=== PATIENT | male | born 1975 | race Hispanic/Latino ===

== ENCOUNTER 2016-12-26 14:39 | Inpatient (IN) | payer MEDICAID ==
[2016-12-26 15:12] VITALS: O2SAT 100
--- NOTE | 2016-12-26 15:57 | ED PDOC ---
Arrival/HPI - General Chief Complaint: Psychiatric Evaluation Time Seen by Provider: 12/26/16 15:44 Historian: Patient - History of Present Illness Narrative History of Present Illness (Text): 12/26/16 16:08 A 41 year old male, whose past medical history includes bipolar, PTSD and HPPD, presents to the emergency department because states he has been homeless for the last 3 months and off his medications. Patient notes has been anxious and has racing thoughts to hurt himself and plans to cut his arm. Patient denies homicidal ideation or hallucinations. Patient reports no acute complaints. Patient also reports chronic headaches and back pain. Symptom Onset: Sudden Symptom Course: Unchanged Activities at Onset: Rest Modifying Factors (Text): none Associated Symptoms (Text): anxious, suicidal ideation; chronic back pain and headaches Past Medical History - Provider Review Nursing Documentation Reviewed: Yes - Cardiac Hx Cardiac Disorders: No - Pulmonary Hx Respiratory Disorders: No - Neurological Hx Neurological Disorder: No - HEENT Hx HEENT Disorder: No - Renal Hx Renal Disorder: No - Endocrine/Metabolic Hx Endocrine Disorders: No - Hematological/Oncological Hx Blood Disorders: No - Integumentary Hx Dermatological Disorder: No - Musculoskeletal/Rheumatological Hx Back Pain: Yes - Gastrointestinal Hx Gastrointestinal Disorders: No - Genitourinary/Gynecological Hx Genitourinary Disorders: No - Psychiatric Hx Anxiety: Yes Hx Bipolar Disorder: Yes Hx Depression: Yes Hx Substance Use: Yes (CRACK COCAINE, HEROIN, PCP, LSD) Other/Comment: PTSD, HPPD Family/Social History - Physician Review Nursing Documentation Reviewed: Yes Family/Social History: No Known Family HX Smoking Status: Never Smoked Hx Alcohol Use: Yes Hx Substance Use: Yes (CRACK COCAINE, HEROIN, PCP, LSD) Allergies/Home Meds Allergies/Adverse Reactions: Allergies Penicillins Allergy (Verified 12/26/16 15:04) ANAPHYLAXIS Home Medications: Home Meds Medication Instructions Recorded Confirmed Acetaminophen/Butalbital/Caf 1 tab PO Q4 12/26/16 12/26/16 [Fioricet] Loratadine/Pseudoephedrine 1 tab PO DAILY 12/26/16 12/26/16 [Claritin-D 24 Hour Tablet] Valproic Acid [Depakene] 500 mg PO BID 12/26/16 12/26/16 Review of Systems - Physician Review All systems were reviewed & negative as marked: Yes - Review of Systems Constitutional: absent: Fevers Eyes: absent: Vision Changes Respiratory: absent: SOB Cardiovascular: absent: Chest Pain Musculoskeletal: Back Pain Neurological: Headache Psychiatric: Suicidal Ideation. absent: Other (homicidal ideation, hallucinations) Physical Exam Vital Signs Reviewed: Yes Vital Signs Temp Pulse Resp BP Pulse Ox 12/26/16 17:08 64 17 143/100 H 100 12/26/16 15:05 98.8 F 87 18 153/110 H 100 Temperature: Afebrile Blood Pressure: Hypertensive Pulse: Regular Respiratory Rate: Normal Appearance: Positive for: Well-Appearing, Non-Toxic, Comfortable Pain Distress: None Mental Status: Positive for: Alert and Oriented X 3 - Systems Exam Head: Present: Atraumatic, Normocephalic Pupils: Present: PERRL Conjunctiva: Present: Normal Mouth: Present: Moist Mucous Membranes Pharnyx: Present: Normal. No: ERYTHEMA, EXUDATE Neck: Present: Normal Range of Motion Respiratory/Chest: Present: Clear to Auscultation, Good Air Exchange. No: Respiratory Distress, Accessory Muscle Use Cardiovascular: Present: Regular Rate and Rhythm, Normal S1, S2. No: Murmurs Abdomen: Present: Normal Bowel Sounds. No: Tenderness, Distention, Peritoneal Signs Back: Present: Normal Inspection Upper Extremity: Present: Normal Inspection. No: Cyanosis, Edema Lower Extremity: Present: Normal Inspection. No: Edema Neurological: Present: GCS=15, CN II-XII Intact, Speech Normal Skin: Present: Warm, Dry, Normal Color. No: Rashes Psychiatric: Present: Alert, Oriented x 3, Normal Insight, Normal Concentration , Suicidal Ideation, Other (pressured speech) Medical Decision Making ED Course and Treatment: 12/26/16 15:55 Impression: A 41 year old male with suicidal ideation. Plan: -- EKG -- chest xray -- Urinalysis -- labs -- Reassess and disposition Progress Notes: EKG: Ordered, reviewed, and independently interpreted the EKG. Rate : 72 BPM Rhythm : NSR Interpretation : QRS 100, normal axis, no ST/T changes Comparison : No previous EKG for comparison. 12/26/16 17:53 Patient with noted history is medically cleared for psych admission. Seen by PES - will be admitted for depresion. - Lab Interpretations Lab Results: 12/26/16 16:20 05/14/17 16:20 Lab Results 12/26/16 16:30: Urine Opiates Screen Negative, Urine Methadone Screen Negative, Ur Barbiturates Screen Positive H, Ur Phencyclidine Scrn Negative, Ur Amphetamines Screen Negative, U Benzodiazepines Scrn Negative, U Oth Cocaine Metabols Positive H, U Cannabinoids Screen Negative 12/26/16 16:30: Urine Color Yellow, Urine Appearance Clear, Urine pH 7.5, Ur Specific [place] 1.010, Urine Protein Negative, Urine Glucose (UA) Negative, Urine Ketones Negative, Urine Blood Negative, Urine Nitrate Negative, Urine Bilirubin Negative, Urine Urobilinogen 0.2, Ur Leukocyte Esterase Negative 12/26/16 16:20: Valproic Acid 41 L 12/26/16 16:20: Alcohol, Quantitative < 10 12/26/16 16:20: Sodium 140, Potassium 4.3, Chloride 101, Carbon Dioxide 30, Anion Gap 13, BUN 15, Creatinine 1.0, Est GFR ( Amer) > 60, Est GFR (Non- Af Amer) > 60, Random Glucose 95, Calcium 9.7, Total Bilirubin 0.5, AST 22, ALT 36, Alkaline Phosphatase 60, Total Creatine Kinase 62, Total Protein 7.7, Albumin 4.3, Globulin 3.3, Albumin/Globulin Ratio 1.3, Lipase 54 12/26/16 16:20: WBC 6.8, RBC 4.48, Hgb 14.5, Hct 42.0, MCV 93.8, MCH 32.4, MCHC 34.5, RDW 12.7, Plt Count 422, MPV 8.5, Gran % 65.0, Lymph % (Auto) 27.6, Moca % (Auto) 6.2 H, Eos % (Auto) 0.9 L, Baso % (Auto) 0.3, Gran # 4.43, Lymph # 1.9 , Moca # 0.4, Eos # 0.1, Baso # 0.02 12/26/16 15:56: POC Glucose (mg/dL) 89 I have reviewed the lab results: Yes - RAD Interpretation Radiology Orders: 12/26/16 15:51 CHEST PORTABLE [RAD] Stat - EKG Interpretation Interpreted by ED Physician: Yes Type: 12 lead EKG - Scribe Statement The provider has reviewed the documentation as recorded by the Trino Ziegler Provider Scribe Attestation: All medical record entries made by the Scribe were at my direction and personally dictated by me. I have reviewed the chart and agree that the record accurately reflects my personal performance of the history, physical exam, medical decision making, and the department course for this patient. I have also personally directed, reviewed, and agree with the discharge instructions and disposition. Disposition/Present on Arrival - Present on Arrival Any Indicators Present on Arrival: No History of DVT/PE: No History of Uncontrolled Diabetes: No Urinary Catheter: No History of Decub. Ulcer: No History Surgical Site Infection Following: None - Disposition Have Diagnosis and Disposition been Completed?: Yes Diagnosis: Depression Disposition: HOSPITALIZED Disposition Time: 17:45 Patient Plan: Admission Condition: FAIR Referrals: PCP,NO [Primary Care Provider] - Follow up with primary
[2016-12-26 16:31] LABS: ADD MANUAL DIFF? NO
[2016-12-26 16:36] LABS: BASO # 0.02 K/mm3 (0.0-2.0); BASO % 0.3 % (0.0-3.0); EOS # 0.1 (0.0-0.7); EOS % 0.9 % (1.5-5.0); GRAN # 4.43 (1.4-6.5); LYMPH # 1.9 (1.2-3.4); LYMPH % 27.6 % (22.0-35.0); MEAN CELL VOLUME 93.8 fL (80.0-105.0); MEAN CORPUSCULAR HEMOGLOBIN 32.4 pg (25.0-35.0); MEAN CORPUSCULAR HGB CONC 34.5 g/dl (31.0-37.0); MEAN PLATELET VOLUME 8.5 fl (7.0-11.0); MONO # 0.4 (0.1-0.6); MONO % 6.2 % (1.0-6.0); PLATELET COUNT 422 10^3/uL (120.0-450.0); RED CELL DISTRIBUTION WIDTH 12.7 % (11.5-14.5); WHITE BLOOD COUNT 6.8 10^3/ul (4.5-11.0)
[2016-12-26 16:45] LABS: PH,URINE 7.5 (4.7-8.0); URINE APPEARANCE CLEAR (CLEAR); URINE BILIRUBIN NEGATIVE (NEGATIVE); URINE BLOOD NEGATIVE (NEGATIVE); URINE COLOR YELLOW (YELLOW); URINE GLUCOSE (UA) NEGATIVE (NEGATIVE); URINE KETONE NEGATIVE (NEGATIVE); URINE LEUKOCYTE ESTERASE NEGATIVE Leu/uL (NEGATIVE); URINE PROTEIN NEGATIVE mg/dL (<30 mg/dL); URINE UROBILINOGEN 0.2 E.U./dL (<1 E.U./dL)
[2016-12-26 16:55] LABS: ALB/GLOB RATIO 1.3 (1.1-1.8); ALKALINE PHOSPHATASE 60 U/L (38-133); ALT/SGPT 36 U/L (7-56); AST/SGOT 22 U/L (15-59); BILIRUBIN,TOTAL 0.5 mg/dL (0.2-1.3); BLOOD UREA NITROGEN 15 mg/dL (7-21); CALCIUM 9.7 mg/dL (8.4-10.5); CARBON DIOXIDE 30 mmol/L (21-33); CHLORIDE 101 mmol/L (98-107); GFR AFRICAN-AMERICAN > 60; GLUCOSE,RANDOM 95 mg/dL (70-110); LIPASE 54 U/L (23-300); POTASSIUM 4.3 mmol/L (3.6-5.0); SODIUM 140 mmol/L (132-148); TOTAL PROTEIN 7.7 g/dL (5.8-8.3)
[2016-12-27 06:59] VITALS: RESP 20; TEMP 98.1
--- NOTE | 2016-12-27 07:12 | RAD ---
HISTORY: psych COMPARISON: None available. TECHNIQUE: Chest, one view. FINDINGS: LUNGS: No focal consolidation. Please note that chest x-ray has limited sensitivity for the detection of pulmonary masses. PLEURA: No significant pleural effusion identified. No definite pneumothorax . CARDIOVASCULAR: The cardiomediastinal silhouette appears within normal limits of size. OSSEOUS STRUCTURES: No acute osseous abnormality identified. VISUALIZED UPPER ABDOMEN: Unremarkable. OTHER FINDINGS: None. IMPRESSION: No focal consolidation, significant pleural effusion, or definite pneumothorax identified.
[2016-12-27 07:59] LABS: CHOLESTEROL 168 mg/dL (130-200); GLUCOSE,FASTING 90 mg/dL (65-110)
[2016-12-27] MEDS: Divalproex 500 mg DR(BID formulation) PO SCH ×2 (09:15→17:00)
[2016-12-27] MEDS ORDERED: Lidocaine 5% Patch TD SCH (11:15)
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
--- NOTE | 2016-12-27 11:54 | CARD ---
APPROVED REPORT EKG Measurement Heart [id number] <Conclusion> Normal sinus rhythm Incomplete right bundle branch block Normal ECG
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
[2016-12-27 15:57] VITALS: BP 124/88; PULSE 84
--- NOTE | 2016-12-27 17:49 | CON ---
DATE: 12/27/2016 CHIEF COMPLAINT: Headaches, history of concussions. HISTORY OF PRESENT ILLNESS: This is a 41-year-old man with past medical history of bipolar disorder, PTSD, hallucinogen persisting perception disorder, chronic headaches, anxiety, depression, who is he re in the psychiatric unit for evaluation of suicidal ideation. He was having some visual hallucinat ions and I was consulted for his history of chronic headaches. He has history of multiple concussion s throughout his life in the past. He gets headaches daily. He takes Fioricet 4 times a day, which has been explained to him that it can lead to overuse medication headache. He has tried gabapentin o nce before, which had some relief. He has chronic low back pain for multiple years due to history of trauma. He denies any change in sense of vision, taste or smell with his headaches. He gets occasi onal aura. Otherwise, no paresthesias in the extremities with the headaches. He was on Depakote for his bipolar, but he wants to be tapered off since it is not working for that or his headaches. Curr ently, he is walking around without any difficulties. PAST MEDICAL HISTORY: Bipolar disorder, PTSD, hallucinogen persisting perception disorder, chronic h eadaches, anxiety, depression. PAST SURGICAL HISTORY: None. ALLERGIES: None. FAMILY HISTORY: Noncontributory. SOCIAL HISTORY: He has lost his job 4 months ago. Homeless for the past 3 months. He denies any ETO H abuse or smoking. His last cocaine use was 4 days ago. Prior to that, 9 months. Last ETOH use was 4 days ago. REVIEW OF SYSTEMS: A 14-point review of systems except for the HPI. PHYSICAL EXAMINATION: VITAL SIGNS: Temperature 98.1, pulse of 80, blood pressure 130/88, respiratory rate 20, oxygen satur ation 100% on room air. GENERAL: The patient is sitting up in bed in no acute distress. HEENT: Atraumatic, normocephalic. PERRLA. Extraocular muscles intact. NECK: Supple, no JVD, no adenopathy noted. LUNGS: Clear to auscultation. No adventitious sounds. HEART: S1, S2, normal rate and rhythm. No murmurs, rubs, or gallops. ABDOMEN: Soft, nontender, nondistended. Bowel sounds present. EXTREMITIES: No clubbing, no cyanosis. Peripheral pulses 2+ felt bilaterally. NEUROLOGIC: The patient is alert, oriented to person, place, month and year. Speech is fluent, with out any errors. Cranial nerves II through XII are intact. MOTOR: Moves all extremities equally. Toes downgoing bilaterally. SENSORY: Light touch, pinprick, proprioception, vibration intact. DTRs are 2+ throughout. COORDINATION: [id number]-defo intact. GAIT: Normal. LABORATORIES: Sodium is 140, potassium 4.3, chloride of 101, carbon dioxide 30, BUN of 15, creatinin e at 1. Random glucose of 95. ASSESSMENT AND PLAN: This is a 41-year-old man with history of chronic back pain, depression, anxiet y, post traumatic stress disorder, bipolar disorder, chronic headaches, history of multiple concussio ns. Came in for suicidal ideation, was called for a neurological evaluation for his headaches. He i s overusing Fioricet, taking 4 a day, which can cause medication overuse headache. Also, his headach es with a migraine component. I feel like he will benefit from gabapentin or Neurontin 400 mg p.o. b.i.d., which will also help with his anxiety as well as headache prevention, and to limit the u se of Fioricet, not more than 1 or 2 q. 6 hours. At this time, continue with psychiatric management for his underlying bipolar disorder and can follow up as an outpatient. Thank you for this consult. Konrad Chacon MD cc: [id number] TT: 12/27/2016 17:48:55 Confirmation # [id number] Dictation # [id number] ln
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
== END 2016-12-27 20:05 | DRG 430 ==
LOC: ED 14:39 → ERH 17:55 → MERGE 17:55 → PSYC 18:54
PROVIDERS: ADMIT Psychologist; ATTEND Psychiatry & Neurology Psychiatry
PROC: GZ3ZZZZ Medication Management (ICD-10-PCS; principal; 2016-12-26)
DX: F32.89 Other specified depressive episodes (principal); R45.851 Suicidal ideations; F14.10 Cocaine abuse, uncomplicated; F43.23 Adjustment disorder with mixed anxiety and depressed mood; G43.909 Migraine, unspecified, not intractable, without status migrainosus; F43.10 Post-traumatic stress disorder, unspecified; M54.5 Low back pain; G89.29 Other chronic pain; F41.9 Anxiety disorder, unspecified; F16.983 Hallucinogen use, unspecified with hallucinogen persisting perception disorder (flashbacks); F17.210 Nicotine dependence, cigarettes, uncomplicated; Z59.0 Homelessness

== ENCOUNTER 2017-03-24 13:13 | Inpatient (IN) | payer MEDICAID ==
[2017-03-24 13:15] VITALS: BMI 23.6
--- NOTE | 2017-03-24 13:50 | ED PDOC ---
Arrival/HPI - General Chief Complaint: Psychiatric Evaluation Time Seen by Provider: 03/24/17 13:17 Historian: Patient - History of Present Illness Narrative History of Present Illness (Text): 03/24/17 13:28 A 41 year old male whose past medical history includes, PTSD and ADD, presents to the emergency department for depression and suicidal ideation. The patient states that he wants to jump in front of a train and admits to using cocaine. The patient denies homicidal ideation, hallucinations, headache, chills, fevers , abdominal pain, nausea, vomiting, diarrhea, or any other complaints. Time/Duration: Other (today) Symptom Onset: Sudden Symptom Course: Unchanged Activities at Onset: Rest, Light Context: Home Past Medical History - Provider Review Nursing Documentation Reviewed: Yes - Infectious Disease Hx of Infectious Diseases: None - Cardiac Hx Cardiac Disorders: No - Pulmonary Hx Respiratory Disorders: No - Neurological Hx Neurological Disorder: No Other/Comment: Concussions in the past - HEENT Hx HEENT Disorder: No - Renal Hx Renal Disorder: No - Endocrine/Metabolic Hx Endocrine Disorders: No - Hematological/Oncological Hx Blood Disorders: No - Integumentary Hx Dermatological Disorder: No - Musculoskeletal/Rheumatological Hx Musculoskeletal Disorders: Yes Hx Back Pain: Yes - Gastrointestinal Hx Gastrointestinal Disorders: No - Genitourinary/Gynecological Hx Genitourinary Disorders: No - Psychiatric Hx Psychophysiologic Disorder: Yes Hx Anxiety: Yes Hx Bipolar Disorder: Yes Hx Depression: Yes Hx Post Traumatic Stress Disorder: Yes Hx Substance Use: Yes (cocaine, heroin) - Anesthesia Hx Anesthesia: No - Suicidal Assessment Feels Threatened In Home Enviroment: No Family/Social History - Physician Review Nursing Documentation Reviewed: Yes Family/Social History: No Known Family HX Smoking Status: Never Smoked Hx Alcohol Use: Yes Frequency of alcohol use: Few days per week Hx Substance Use: Yes (cocaine, heroin) Substance used: cocaine Allergies/Home Meds Allergies/Adverse Reactions: Allergies Penicillins Allergy (Verified 01/31/17 11:19) trazodone Adverse Reaction (Intermediate, Verified 01/31/17 11:19) VOMITING canned fish Allergy (Intermediate, Uncoded 01/31/17 11:19) VOMITING Home Medications: Home Meds Medication Instructions Recorded Confirmed Paroxetine HCl [Paxil] 20 mg PO DAILY 01/17/17 03/24/17 Acetaminophen/Butalbital/Caf 1 tab PO QID 03/24/17 03/24/17 [Fioricet] Cyclobenzaprine [Cyclobenzaprine 10 mg PO BID 03/24/17 03/24/17 HCl] traMADol [Ultram] 50 mg PO TID 03/24/17 03/24/17 Review of Systems - Physician Review All systems were reviewed & negative as marked: Yes - Review of Systems Constitutional: absent: Fevers, Night Sweats Respiratory: absent: SOB Cardiovascular: absent: Chest Pain, Syncope Gastrointestinal: absent: Diarrhea, Nausea, Vomiting Neurological: absent: Headache, Dizziness Psychiatric: Suicidal Ideation. absent: Other (Homicidal Ideation and Hallucinations) Physical Exam Vital Signs Reviewed: Yes Vital Signs Temp Pulse Resp BP Pulse Ox 03/24/17 13:22 99.7 F H 97 H 20 157/112 H 96 Temperature: Febrile Blood Pressure: Hypertensive Pulse: Tachycardic Respiratory Rate: Normal Appearance: Positive for: Well-Appearing, Non-Toxic, Comfortable Pain Distress: None Mental Status: Positive for: Alert and Oriented X 3 - Systems Exam Head: Present: Atraumatic, Normocephalic Pupils: Present: PERRL Extroacular Muscles: Present: EOMI Conjunctiva: Present: Normal Mouth: Present: Moist Mucous Membranes Neck: Present: Normal Range of Motion Respiratory/Chest: Present: Clear to Auscultation, Good Air Exchange. No: Respiratory Distress, Accessory Muscle Use Cardiovascular: Present: Regular Rate and Rhythm, Normal S1, S2. No: Murmurs Abdomen: Present: Normal Bowel Sounds. No: Tenderness, Distention, Peritoneal Signs Back: Present: Normal Inspection Upper Extremity: Present: Normal Inspection. No: Cyanosis, Edema Lower Extremity: Present: Normal Inspection. No: Edema Neurological: Present: GCS=15, CN II-XII Intact, Speech Normal Skin: Present: Warm, Dry, Normal Color. No: Rashes Psychiatric: Present: Alert, Oriented x 3, Normal Insight, Normal Concentration , Depressed Mood, Suicidal Ideation. No: Homicidal Ideation Medical Decision Making ED Course and Treatment: 03/24/17 13:56 Impression: A 41 year old male presents with suicidal ideation and depression. Differential Diagnosis included but are not limited to: Plan: -- EKG -- Labs -- Chest X-ray -- Urinalysis -- Reassess and disposition Progress Notes: 03/24/17 14:23 EKG: Ordered, reviewed, and independently interpreted the EKG. Rate : 85 BPM Rhythm : NSR Interpretation : No ST/T wave changes. 03/24/17 14:54: Patient medically clear. - Lab Interpretations Lab Results: 03/24/17 14:17 03/24/17 14:17 Lab Results 03/24/17 14:17: Alcohol, Quantitative < 10 03/24/17 14:17: Salicylates < 1 L, Acetaminophen < 10.0 L 03/24/17 14:17: Urine Opiates Screen Negative, Urine Methadone Screen Negative, Ur Barbiturates Screen Positive H, Ur Phencyclidine Scrn Negative, Ur Amphetamines Screen Negative, U Benzodiazepines Scrn Negative, U Oth Cocaine Metabols Positive H, U Cannabinoids Screen Negative 03/24/17 14:17: Sodium 139, Potassium 3.7, Chloride 102, Carbon Dioxide 27, Anion Gap 14, BUN 14, Creatinine 1.0, Est GFR ( Amer) > 60, Est GFR (Non- Af Amer) > 60, Random Glucose 88, Calcium 9.4, Total Bilirubin 0.4, AST 36, ALT 51, Alkaline Phosphatase 67, Total Protein 7.2, Albumin 4.5, Globulin 2.7, Albumin/Globulin Ratio 1.7 03/24/17 14:17: Urine Color Yellow, Urine Appearance Clear, Urine pH 6.5, Ur Specific Sawyer 1.020, Urine Protein Negative, Urine Glucose (UA) Negative, Urine Ketones Negative, Urine Blood Negative, Urine Nitrate Negative, Urine Bilirubin Negative, Urine Urobilinogen 0.2, Ur Leukocyte Esterase Negative 03/24/17 14:17: WBC 5.6, RBC 4.13, Hgb 13.3 L, Hct 38.3 L, MCV 92.7, MCH 32.2, MCHC 34.7, RDW 12.4, Plt Count 403, MPV 8.2, Gran % 60.2, Lymph % (Auto) 30.1, Pierce % (Auto) 8.9 H, Eos % (Auto) 0.4 L, Baso % (Auto) 0.4, Gran # 3.39, Lymph # 1.7, Pierce # 0.5, Eos # 0.0, Baso # 0.02 - RAD Interpretation Radiology Orders: 03/24/17 13:48 CHEST PORTABLE [RAD] Stat - Scribe Statement The provider has reviewed the documentation as recorded by the Scribe Marisa Nicolas Provider Scribe Attestation: All medical record entries made by the Scribe were at my direction and personally dictated by me. I have reviewed the chart and agree that the record accurately reflects my personal performance of the history, physical exam, medical decision making, and the department course for this patient. I have also personally directed, reviewed, and agree with the discharge instructions and disposition. Disposition/Present on Arrival - Present on Arrival Any Indicators Present on Arrival: No History of DVT/PE: No History of Uncontrolled Diabetes: No Urinary Catheter: No History of Decub. Ulcer: No History Surgical Site Infection Following: None - Disposition Have Diagnosis and Disposition been Completed?: Yes Diagnosis: Bipolar 1 disorder, Substance abuse Disposition: HOSPITALIZED Disposition Time: 02:00 Condition: STABLE
[2017-03-24 14:31] LABS: PH,URINE 6.5 (4.7-8.0); URINE BILIRUBIN NEGATIVE (NEGATIVE); URINE BLOOD NEGATIVE (NEGATIVE); URINE GLUCOSE (UA) NEGATIVE (NEGATIVE); URINE LEUKOCYTE ESTERASE NEGATIVE Leu/uL (NEGATIVE); URINE NITRATE NEGATIVE (NEGATIVE); URINE PROTEIN NEGATIVE mg/dL (<30 mg/dL); URINE UROBILINOGEN 0.2 E.U./dL (<1 E.U./dL)
[2017-03-24 14:32] LABS: URINE APPEARANCE CLEAR (CLEAR); URINE COLOR YELLOW (YELLOW)
[2017-03-24 14:33] LABS: BASO # 0.02 K/mm3 (0.0-2.0); BASO % 0.4 % (0.0-3.0); EOS % 0.4 % (1.5-5.0); GRAN # 3.39 (1.4-6.5); GRAN % 60.2 % (50.0-68.0); HEMOGLOBIN 13.3 g/dL (14.0-18.0); LYMPH # 1.7 (1.2-3.4); LYMPH % 30.1 % (22.0-35.0); MEAN CELL VOLUME 92.7 fl (80.0-105.0); MEAN CORPUSCULAR HEMOGLOBIN 32.2 pg (25.0-35.0); MEAN CORPUSCULAR HGB CONC 34.7 g/dl (31.0-37.0); MEAN PLATELET VOLUME 8.2 fl (7.0-11.0); MONO # 0.5 (0.1-0.6); MONO % 8.9 % (1.0-6.0); PLATELET COUNT 403 10^3/uL (120.0-450.0); RBC 4.13 10^6/uL (3.5-6.1); RED CELL DISTRIBUTION WIDTH 12.4 % (11.5-14.5); WHITE BLOOD COUNT 5.6 10^3/ul (4.5-11.0)
--- NOTE | 2017-03-24 14:39 | RAD ---
HISTORY: pysch COMPARISON: 12/26/2016 FINDINGS: LUNGS: No active pulmonary disease. PLEURA: No significant pleural effusion identified, no pneumothorax apparent. CARDIOVASCULAR: Normal. OSSEOUS STRUCTURES: No significant abnormalities. VISUALIZED UPPER ABDOMEN: Normal. OTHER FINDINGS: None. IMPRESSION: No active disease.
[2017-03-24 14:41] LABS: SALICYLATE < 1 mg/dL (2.0-20.0)
[2017-03-24 14:42] LABS: ALB/GLOB RATIO 1.7 (1.1-1.8); ALBUMIN 4.5 g/dL (3.0-4.8); ALT/SGPT 51 U/L (7-56); AST/SGOT 36 U/L (15-59); BLOOD UREA NITROGEN 14 mg/dL (7-21); CALCIUM 9.4 mg/dL (8.4-10.5); GFR AFRICAN-AMERICAN > 60; GFR NON-AFRICAN AMERICAN > 60
[2017-03-24 14:51] LABS: ACETAMINOPHEN < 10.0 ug/ml (10.0-20.0); BARBITURATES, UR POSITIVE (NEGATIVE); BENZODIAZEPINES, UR NEGATIVE (NEGATIVE); OPIATES, UR NEGATIVE (NEGATIVE); PHENCYCLIDINE, UR NEGATIVE (NEGATIVE)
[2017-03-24 18:28] VITALS: O2SAT 100
[2017-03-24] MEDS ORDERED: Magnesium Hydroxide Susp 30 ml UD PO PRN (20:35)
[2017-03-24] MEDS ORDERED: Alum-Mag Hydrox-Simethicone Susp (30 mL) PO PRN (20:35)
[2017-03-24 21:57] VITALS: RESP 20
--- NOTE | 2017-03-24 23:45 | PCM.BM ---
<Zander Neri - Last Filed: 03/24/17 23:43> Treatment Plan Problems - Problems identified on initial assessmt suicidal ideation Date Initiated: 03/24/17 Time Initiated: 20:00 Assessment reference: NA Status: Active depression Date Initiated: 03/24/17 Time Initiated: 20:00 Assessment reference: NA Status: Active Treatment assets and liabiliti Patient Assests: ADL independent, negotiates basic needs, cognitively intact Patient Liabilities: live alone, poor support system, relationship conflicts, substance abuse - Milieu Protocol Maintain good personal hygiene: daily Encourage regular showers, daily Remind patient to perform daily oral care Conduct patient checks and document Observation sheet: Q15 minutes Maintain personal safety: every shift Educate patient to report safety concerns to staff, every shift Monitor environment for contraband/sharps Medication safety: Monitor for expected outcome, potential side effects: every shift, Assess barriers to learning: every shift, Assess readiness for medication education: every shift Discharge/Continuing Care - Education Needs Education Needs: Patient Medication, Patient Diagnosis/Disease Process, Patient Coping Skills - Discharge Discharge Criteria: Free of Suicidal thoughts <David Nick - Last Filed: 03/25/17 12:05> - Milieu Protocol Maintain good personal hygiene: daily Encourage regular showers, daily Remind patient to perform daily oral care, daily Assist patient to perform ADL's Maintain personal safety: daily Educate patient to report safety concerns to staff, daily Monitor environment for contraband/sharps Medication safety: Monitor for expected outcome, potential side effects: daily, Assess barriers to learning: daily, Assess readiness for medication education: daily <Yesica Brown - Last Filed: 03/25/17 15:45> Family Contact Family involvement: Famliy/SO not involved <Afshan Victor - Last Filed: 03/25/17 16:35> - Diagnosis (1) Bipolar 1 disorder Status: Acute Interventions: 03/25/17 16:37 Psychoeducation Psychopharmacology/adjustment of medications as needed/ monitoring possible side effects Monitor blood level of mood stabilizers Evaluate pt on daily basis Compliance with medications and follow up appointments Suicide and homicide risk assessment and prevention, coping strategies, safety plan Relapse prevention Reduction of symptoms Improve functional status Family intervention As outpatient: cognitive behavioral therapy (2) Polysubstance abuse Status: Acute Interventions: 03/25/17 16:37 Monitoring withdrawal symptoms Medical detoxification Pharmacotherapy for alcohol/benzos/opioid dependence Maintaining sobriety Relapse prevention Possible rehabilitation Motivational interviewing 12-step programs: AA meetings (3) Antisocial personality disorder Status: Acute Interventions: 03/25/17 16:37 Psychoeducation Psychopharmacology/adjustment of medications as needed/ monitoring possible side effects Evaluate pt on daily basis Compliance with medications and follow up appointments Suicide and homicide risk assessment and prevention, coping strategies, safety plan Relapse prevention Family intervention As outpatient: Transference-focused psychotherapy/dialectical behavioral therapy /schema therapy Mindfulness skills <Jan Burger - Last Filed: 03/28/17 16:52> Treatment assets and liabiliti Patient Assests: cooperative, ADL independent, physically healthy, good support system, negotiates basic needs, cognitively intact Patient Liabilities: substance abuse - Milieu Protocol Maintain good personal hygiene: daily Encourage regular showers, daily Remind patient to perform daily oral care, daily Assist patient to perform ADL's Conduct patient checks and document Observation sheet: Q15 minutes Maintain personal safety: every shift Educate patient to report safety concerns to staff, every shift Monitor environment for contraband/sharps Medication safety: Monitor for expected outcome, potential side effects: every shift, Assess barriers to learning: every shift, Assess readiness for medication education: every shift Discharge/Continuing Care - Education Needs Education Needs: Patient Medication, Patient Diagnosis/Disease Process, Patient Coping Skills
--- NOTE | 2017-03-25 00:13 | CARD ---
APPROVED REPORT EKG Measurement Heart [id number] <Conclusion> Normal sinus rhythm Normal ECG
[2017-03-25 07:15] LABS: GLUCOSE,FASTING 82 mg/dL (65-110); HDL CHOLESTEROL 85 mg/dL (29-60); LDL CHOLESTEROL 60 mg/dL (0-129)
[2017-03-25] MEDS: Bacitracin Ointment 30 GM TUBE TOP SCH ×5 (09:25→17:45)
[2017-03-25] MEDS: Divalproex 500 mg DR(BID formulation) PO SCH ×2 (09:28→17:45)
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
[2017-03-25] MEDS ORDERED: Apap-Butalbital-Caffeine 325-50-40mg Tab PO PRN (16:07)
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
[2017-03-25 16:24] LABS: ALB/GLOB RATIO 1.8 (1.1-1.8); ALBUMIN 4.2 g/dL (3.0-4.8); ALT/SGPT 52 U/L (7-56); AST/SGOT 40 U/L (15-59); BLOOD UREA NITROGEN 17 mg/dL (7-21); CALCIUM 9.6 mg/dL (8.4-10.5); GFR AFRICAN-AMERICAN > 60; GFR NON-AFRICAN AMERICAN > 60
[2017-03-25 16:28] LABS: BASO # 0.02 K/mm3 (0.0-2.0); BASO % 0.3 % (0.0-3.0); EOS # 0.1 (0.0-0.7); EOS % 1.3 % (1.5-5.0); GRAN % 60.4 % (50.0-68.0); HEMOGLOBIN 14.6 g/dL (14.0-18.0); LYMPH % 28.7 % (22.0-35.0); MEAN CELL VOLUME 96.2 fl (80.0-105.0); MEAN CORPUSCULAR HEMOGLOBIN 32.7 pg (25.0-35.0); MEAN PLATELET VOLUME 8.6 fl (7.0-11.0); MONO # 0.7 (0.1-0.6); MONO % 9.3 % (1.0-6.0); PLATELET COUNT 411 10^3/uL (120.0-450.0); RBC 4.46 10^6/uL (3.5-6.1); RED CELL DISTRIBUTION WIDTH 12.9 % (11.5-14.5)
[2017-03-26] MEDS: Bacitracin Ointment 30 GM TUBE TOP SCH ×13 (01:16→22:49)
--- NOTE | 2017-03-26 08:39 | PCM.PYCHPN ---
Psychiatric Progress Note - Psychiatric Progress Note Patient seen today, length of contact: 25 min Patient Chief Complaint: "a little better" Problems Identified/Issues Discussed: I reviewed assessment and recent notes. Patient was interviewed at bedside. He is in fair control and well oriented to circumstances. Thought process is coherent. Patient reports that he feels a little better since admission. Still tired and sleep is "on and off" Affect is constricted and patient denies SI or AVH. Presently denies any new discomfort or pain. Tolerating medications. Staff notes indicate patient can be demanding and manipulative at times. He requires limit setting. There were no major behavioral problems overnight. Diagnostic Results: r/o MDD r/o KALPANA r/o PTSD r/o ADD h/o LSD addiction cocaine abuse h/o alcohol use disorder as per collateral information from [facility] pt has strong antisocial traits Medication Change: No Medical Record Reviewed: Yes Mental Status Examination - Cognitive Function Orientation: Person, Place Attention: WNL - Mood Mood: Depressed ("a little better"), Anxious - Affect Affect: Flat - Speech Speech: Appropriate - Formal Thought Process Formal Thought Process: No Impairment - Suicidal Ideation Suicidal Ideation: No - Homicidal Ideation Homicidal Ideation: No Goal/Treatment Plan - Goal/Treatment Plan Progress Toward Problem(s) and Goals/Treatment Plan: * c/w current tx and plan * Awaiting VPA level * Vitals reviewed and noted below: Selected Entries 03/25/17 03/25/17 07:43 16:00 Temperature 98.0 F Pulse Rate 60 90 Respiratory 20 Rate Blood Pressure 144/98 H 127/90
[2017-03-26] MEDS: Divalproex 500 mg DR(BID formulation) PO SCH ×2 (08:52→18:08)
[2017-03-26] MEDS: Multivitamin Therapeutic Tab PO SCH (08:52)
[2017-03-27] MEDS: Divalproex 500 mg DR(BID formulation) PO SCH ×2 (08:33→18:12)
--- NOTE | 2017-03-27 09:20 | PCM.PYCHPN ---
Psychiatric Progress Note - Psychiatric Progress Note Patient seen today, length of contact: 25 min Patient Chief Complaint: "absolutely feel better"" Problems Identified/Issues Discussed: I reviewed recent notes and patient was interviewed at bedside. He is in fair control and well oriented to circumstances. Thought process is coherent. Patient reports that he "absolutely feels better" since admission. Manager Cosmetics heavy tongue yesterday, possibly secondary to Risperdal. This improved with cogentin and patient denies recurrence. Affect is less constricted today and patient denies SI or AVH. Presently denies any other new discomfort or pain. Tolerating other medications. Staff notes indicate patient has generally been more manageable and has been attending groups. There were no major behavioral problems over the weekend. Diagnostic Results: r/o MDD r/o KALPANA r/o PTSD r/o ADD h/o LSD addiction cocaine abuse h/o alcohol use disorder as per collateral information from [facility] pt has strong antisocial traits Medication Change: No Medical Record Reviewed: Yes Mental Status Examination - Cognitive Function Orientation: Person, Place Attention: WNL - Mood Mood: Depressed ( "absolutely feels better"), Anxious - Affect Affect: Flat - Speech Speech: Appropriate - Formal Thought Process Formal Thought Process: No Impairment - Suicidal Ideation Suicidal Ideation: No - Homicidal Ideation Homicidal Ideation: No Goal/Treatment Plan - Goal/Treatment Plan Progress Toward Problem(s) and Goals/Treatment Plan: * c/w current tx and plan * VPA level noted below: 03/25/17 06:30 Valproic Acid 12 L * Vitals reviewed and noted below: Selected Entries 03/26/17 03/26/17 06:30 16:47 Temperature 98.4 F Pulse Rate 76 86 Respiratory 20 Rate Blood Pressure 136/84 129/91 H * New weekend labs noted below: 03/26/17 14:06 TSH 3rd Generation 1.40
[2017-03-27] MEDS: Multivitamin Therapeutic Tab PO SCH (10:15)
[2017-03-27] MEDS: Bacitracin 500 Units/gm Oint Foilpak UD TOP SCH (23:01)
[2017-03-28] MEDS: Multivitamin Therapeutic Tab PO SCH (08:57)
[2017-03-28] MEDS: Divalproex 500 mg DR(BID formulation) PO SCH ×2 (08:57→17:42)
[2017-03-28] MEDS: Bacitracin 500 Units/gm Oint Foilpak UD TOP SCH ×2 (08:58→18:04)
--- NOTE | 2017-03-29 03:56 | PN ---
COVERING FOR: Dr. Victor. Chart reviewed and case discussed with staff. The patient was interviewed in the treatment team. The patient is a 41-year-old white male with a self-reported history of PTSD, KALPANA, MDD, and ADD. He reported he has multiple psychiatric admissions including history of multiple suicide attempts in the past. He is currently homeless and has no job. He had brought himself to the hospital because of feeling increasingly depressed and possibly suicidal. He had a plan of wanting to jump in front of traffic or train. The patient reported also that he had been using cocaine on a daily basis. He was being maintained on Paxil, Neurontin, Depakote, and Risperdal. Today, his mood and affect appears to be improving. He is being maintained psychotropically on Cogentin 1 mg daily, Depakote 500 mg b.i.d, Neurontin 600 mg t.i.d., Paxil 30 mg at bedtime, Risperdal 0.5 mg a.m. and at bedtime, Seroquel 25 mg at bedtime. Jeyson Young MD/ PhD
[2017-03-29 06:54] VITALS: BP 121/86; PULSE 78; TEMP 98.7
[2017-03-29] MEDS: Multivitamin Therapeutic Tab PO SCH (09:18)
[2017-03-29] MEDS: Divalproex 500 mg DR(BID formulation) PO SCH (09:18)
[2017-03-29] MEDS: Bacitracin 500 Units/gm Oint Foilpak UD TOP SCH (09:18)
== END 2017-03-29 13:34 | disposition home or self-care (01) | DRG 430 ==
LOC: ED 13:13 → ERH 15:16 → PSYC 18:45
PROVIDERS: ADMIT Psychiatry & Neurology Psychiatry; ATTEND Psychiatry & Neurology Psychiatry
DX: F31.9 Bipolar disorder, unspecified (principal); F14.10 Cocaine abuse, uncomplicated; I10 Essential (primary) hypertension; F60.2 Antisocial personality disorder; F43.10 Post-traumatic stress disorder, unspecified; Z88.0 Allergy status to penicillin; Z59.0 Homelessness

== ENCOUNTER 2017-04-05 10:09 | Inpatient (IN) | payer MEDICAID ==
[2017-04-05 10:10] VITALS: BMI 23.6
[2017-04-05 10:25] VITALS: O2SAT 99
[2017-04-05 11:06] LABS: PH,URINE 6.5 (4.7-8.0); URINE BILIRUBIN NEGATIVE (NEGATIVE); URINE BLOOD NEGATIVE (NEGATIVE); URINE GLUCOSE (UA) NEGATIVE (NEGATIVE); URINE KETONE NEGATIVE (NEGATIVE); URINE LEUKOCYTE ESTERASE NEGATIVE Leu/uL (NEGATIVE); URINE PROTEIN NEGATIVE mg/dL (<30 mg/dL); URINE UROBILINOGEN 0.2 E.U./dL (<1 E.U./dL)
--- NOTE | 2017-04-05 11:06 | ED PDOC ---
Arrival/HPI - General Chief Complaint: Psychiatric Evaluation Time Seen by Provider: 04/05/17 10:30 Historian: Patient - History of Present Illness Narrative History of Present Illness (Text): 04/05/17 10:30 Jens Jones Jr is a 41 year old male who presents to the emergency department stating that he was depressed and wants to hurt himself. Patient's plan was to overdose on heroin. Patient states that he tried his plan overnight but woke up, prompting him to come to the emergency department. Patient has no other complaints at this time. Time/Duration: 24 hours Symptom Onset: Gradual Symptom Course: Unchanged Activities at Onset: Rest Context: Home Past Medical History - Provider Review Nursing Documentation Reviewed: Yes - Infectious Disease Hx of Infectious Diseases: None - Cardiac Hx Cardiac Disorders: No Hx Hypertension: No - Pulmonary Hx Respiratory Disorders: No - Neurological Hx Neurological Disorder: No Hx Seizures: No - HEENT Hx HEENT Disorder: No - Renal Hx Renal Disorder: No - Endocrine/Metabolic Hx Endocrine Disorders: No - Hematological/Oncological Hx Blood Disorders: No - Integumentary Hx Dermatological Disorder: No - Musculoskeletal/Rheumatological Hx Musculoskeletal Disorders: Yes Hx Back Pain: Yes - Gastrointestinal Hx Gastrointestinal Disorders: No - Genitourinary/Gynecological Hx Genitourinary Disorders: No Hx Sexually Transmitted Diseases: No - Psychiatric Hx Psychophysiologic Disorder: Yes Hx Anxiety: Yes Hx Bipolar Disorder: Yes Hx Depression: Yes Hx Post Traumatic Stress Disorder: Yes Hx Substance Use: Yes (crack cocaine, heroin) - Anesthesia Hx Anesthesia: No - Suicidal Assessment Feels Threatened In Home Enviroment: No Family/Social History - Physician Review Nursing Documentation Reviewed: Yes Family/Social History: No Known Family HX Smoking Status: chewing Hx Alcohol Use: Yes Frequency of alcohol use: Daily Hx Substance Use: Yes (crack cocaine, heroin) Substance used: cocaine Allergies/Home Meds Allergies/Adverse Reactions: Allergies egg Allergy (Verified 04/05/17 10:24) VOMITING Penicillins Allergy (Verified 04/05/17 10:23) RASH trazodone Adverse Reaction (Intermediate, Verified 04/05/17 10:23) VOMITING canned fish Allergy (Intermediate, Uncoded 04/05/17 10:23) VOMITING Home Medications: Home Meds Medication Instructions Recorded Confirmed Clindamycin [Cleocin] 300 mg PO QID 04/05/17 04/05/17 oxyCODONE/Acetaminophen [Percocet 1 tab PO PRN PRN 04/05/17 04/05/17 5/325 mg Tab] Physical Exam - Physical Exam Narrative Physical Exam (Text): - Review of Systems Constitutional: Normal. absent: Fatigue, Weight Change, Fevers Eyes: Normal ENT: Normal Respiratory: Normal absent: SOB, Cough, Sputum Cardiovascular: Normal absent: Chest pain, Palpitations, Syncope Gastrointestinal: Normal absent: Abdominal pain, Diarrhea, Nausea, Vomiting Genitourinary: Normal. absent: Dysuria, Frequency, Hematuria Musculoskeletal: Normal. absent: Arthralgias, Back Pain, Neck Pain Skin: Normal Neurological: Normal absent: Focal Weakness Endocrine: Normal Hemo/Lymphatic: Normal Psychiatric: Depressed, suicidal ideations, no homicidal ideations - Physical exam Patient appears age appropriate, speaking full sentences without difficulty. - Systems Exam Head: Present: Atraumatic, Normocephalic Pupils: Present: PERRL Extraocular Muscles: Present: EOMI Conjunctiva: Present: Normal Mouth: Present: Moist Mucous Membranes Neck: Present: Normal Range of Motion. No: MIDLINE TENDERNESS, Paraspinal Tenderness Respiratory/Chest: Present: Clear to Auscultation, Good Air Exchange. No: Respiratory Distress, Accessory Muscle Use, Tachypnic Cardiovascular: Present: Regular Rate and Rhythm, Normal S1, S2, Peripheral Pulses Present. No: Murmurs Abdomen: Present: Normal Bowel Sounds, No: Tenderness, Peritoneal Signs, Rebound, Guarding, Distention Back: Present: Normal Inspection. No: Midline Tenderness, Paraspinal Tenderness Upper Extremity: Present: Normal Inspection. No: Cyanosis, Edema Lower Extremity: Present: Normal Inspection. No: Edema Neurological: Present: GCS=15, Speech Normal, cranial nerves II through XII fully intact with no cerebellar abnormality, neuro-sensory fully intact. No focal neurological deficits. Skin: Present: Warm, Dry, Normal Color. No: Rashes Lymphatic: Present: OX3, NI, NC Psychiatric: Present: Alert, Oriented x 3, Normal Insight, Normal Concentration Vital Signs Reviewed: Yes Vital Signs Temp Pulse Resp BP Pulse Ox 04/05/17 10:24 98.1 F 83 16 147/97 H 99 Temperature: Afebrile Blood Pressure: Hypertensive Pulse: Regular Respiratory Rate: Normal Appearance: Positive for: Well-Appearing, Non-Toxic, Comfortable Pain Distress: None Mental Status: Positive for: Alert and Oriented X 3 Medical Decision Making ED Course and Treatment: 04/05/17 10:30 Impression: 41 year old male stating that he was depressed and wants to hurt himself. Patient tried overdosing on heroin overnight but woke up. Appears in no distress with no acute findings on PE Plan: -- EKG -- Chest X-ray -- Urinalysis -- Labs -- Reassess and disposition Prior Visits: Notes and results from previous visits were reviewed. Patient last seen in the ED on 04/03/17 for right great toe pain and swelling. Patient was discharged home with instructions to follow-up with a material control manager. Progress Notes: EKG shows NSR at [address]-segment elevations, normal intervals. Interpreted by me. 04/05/17 12:25 Chest xray interpreted by ED physician shows no pneumothorax, no cardiomegaly, no infiltrates seen by Leticia from [facility], [facility] pt to be admitted to [facility] to Dr. Victor's service, diagnosis bipolar disorder pt aware of and agrees with plan - Lab Interpretations Lab Results: 04/05/17 11:20 04/05/17 11:20 Lab Results 04/05/17 11:20: Alcohol, Quantitative < 10 04/05/17 11:20: Salicylates < 1 L, Acetaminophen < 10.0 L 04/05/17 11:20: Sodium 140, Potassium 3.6, Chloride 104, Carbon Dioxide 25, Anion Gap 15, BUN 18, Creatinine 1.0, Est GFR ( Amer) > 60, Est GFR (Non- Af Amer) > 60, Random Glucose 121 H, Calcium 9.1, Total Bilirubin 0.1 L, AST 28 , ALT 39, Alkaline Phosphatase 63, Total Protein 6.6, Albumin 4.1, Globulin 2.6 , Albumin/Globulin Ratio 1.6 04/05/17 11:20: WBC 9.2 D, RBC 4.08, Hgb 13.2 L, Hct 37.8 L, MCV 92.6 D, MCH 32.4, MCHC 34.9, RDW 12.4, Plt Count 460 H, MPV 8.1, Gran % 71.7 H, Lymph % ( Auto) 20.7 L, [place] % (Auto) 7.0 H, Eos % (Auto) 0.4 L, Baso % (Auto) 0.2, Gran # 6.59 H, Lymph # 1.9, [place] # 0.6, Eos # 0.0, Baso # 0.02 04/05/17 11:01: Urine Opiates Screen Negative, Urine Methadone Screen Negative, Ur Barbiturates Screen Negative, Ur Phencyclidine Scrn Negative, Ur Amphetamines Screen Negative, U Benzodiazepines Scrn Negative, U Oth Cocaine Metabols Positive H, U Cannabinoids Screen Negative 04/05/17 11:01: Urine Color Yellow, Urine Appearance Clear, Urine pH 6.5, Ur Specific [place] 1.025, Urine Protein Negative, Urine Glucose (UA) Negative, Urine Ketones Negative, Urine Blood Negative, Urine Nitrate Negative, Urine Bilirubin Negative, Urine Urobilinogen 0.2, Ur Leukocyte Esterase Negative I have reviewed the lab results: Yes - RAD Interpretation Radiology Orders: 04/05/17 10:30 CHEST PORTABLE [RAD] Stat - Scribe Statement The provider has reviewed the documentation as recorded by the Ginoibgiuseppe Sunshine Provider Scribe Attestation: All medical record entries made by the Scribe were at my direction and personally dictated by me. I have reviewed the chart and agree that the record accurately reflects my personal performance of the history, physical exam, medical decision making, and the department course for this patient. I have also personally directed, reviewed, and agree with the discharge instructions and disposition. Disposition/Present on Arrival - Present on Arrival Any Indicators Present on Arrival: No History of DVT/PE: No History of Uncontrolled Diabetes: No Urinary Catheter: No History of Decub. Ulcer: No History Surgical Site Infection Following: None - Disposition Have Diagnosis and Disposition been Completed?: Yes Diagnosis: Bipolar disorder Disposition: HOSPITALIZED Disposition Time: 12:27 Patient Plan: Admission Patient Problems: Current Active Problems Problem Status Onset Bipolar disorder Acute Condition: FAIR Referrals: PCP,NO [Primary Care Provider] - Follow up with primary Forms: [employer] (Tanzanian)
[2017-04-05 11:08] LABS: URINE APPEARANCE CLEAR (CLEAR); URINE COLOR YELLOW (YELLOW)
[2017-04-05 11:29] LABS: BASO # 0.02 K/mm3 (0.0-2.0); BASO % 0.2 % (0.0-3.0); EOS % 0.4 % (1.5-5.0); GRAN # 6.59 (1.4-6.5); GRAN % 71.7 % (50.0-68.0); HEMATOCRIT 37.8 % (42.0-52.0); LYMPH # 1.9 (1.2-3.4); LYMPH % 20.7 % (22.0-35.0); MEAN CELL VOLUME 92.6 fl (80.0-105.0); MEAN CORPUSCULAR HEMOGLOBIN 32.4 pg (25.0-35.0); MEAN CORPUSCULAR HGB CONC 34.9 g/dl (31.0-37.0); MEAN PLATELET VOLUME 8.1 fl (7.0-11.0); MONO # 0.6 (0.1-0.6); RED CELL DISTRIBUTION WIDTH 12.4 % (11.5-14.5); WHITE BLOOD COUNT 9.2 10^3/ul (4.5-11.0)
[2017-04-05 11:50] LABS: ALB/GLOB RATIO 1.6 (1.1-1.8); ALKALINE PHOSPHATASE 63 U/L (38-133); ALT/SGPT 39 U/L (7-56); AST/SGOT 28 U/L (15-59); BILIRUBIN,TOTAL 0.1 mg/dL (0.2-1.3); BLOOD UREA NITROGEN 18 mg/dL (7-21); CALCIUM 9.1 mg/dL (8.4-10.5); CARBON DIOXIDE 25 mmol/L (21-33); CHLORIDE 104 mmol/L (98-107); GFR AFRICAN-AMERICAN > 60; GLUCOSE,RANDOM 121 mg/dL (70-110); POTASSIUM 3.6 mmol/L (3.6-5.0); SODIUM 140 mmol/L (132-148); TOTAL PROTEIN 6.6 g/dL (5.8-8.3)
[2017-04-05] MEDS ORDERED: Apap-Butalbital-Caffeine 325-50-40mg Tab PO PRN (14:14)
--- NOTE | 2017-04-05 14:59 | PCM.BM ---
Treatment Plan Problems - Problems identified on initial assessmt self harm Date Initiated: 04/05/17 Time Initiated: 15:00 Assessment reference: NA Status: Active Priority: 1 suicidal ideation Date Initiated: 04/05/17 Time Initiated: 15:00 Assessment reference: NA Status: Active Priority: 2 ineffective coping Date Initiated: 04/05/17 Time Initiated: 15:00 Assessment reference: NA Status: Active Priority: 3 anxiety r/t substance abuse Date Initiated: 04/05/17 Time Initiated: 15:00 Assessment reference: NA Status: Active Priority: 4 knowledge deficit of alcohol use Date Initiated: 04/05/17 Time Initiated: 15:00 Assessment reference: NA Status: Active Priority: 5 medication non adherence Date Initiated: 04/05/17 Time Initiated: 15:00 Assessment reference: NA Status: Active Priority: 6 self esteem disturbance Date Initiated: 04/05/17 Time Initiated: 15:00 Assessment reference: NA Status: Active Priority: 7 Treatment assets and liabiliti Patient Assests: cooperative, ADL independent, physically healthy, good support system, negotiates basic needs, cognitively intact Patient Liabilities: live alone, poor support system, substance abuse - Milieu Protocol Maintain good personal hygiene: every shift Encourage regular showers, every shift Remind patient to perform daily oral care, every shift Assist patient to perform ADL's Maintain personal safety: daily Educate patient to report safety concerns to staff, daily Monitor environment for contraband/sharps Medication safety: Monitor for expected outcome, potential side effects: daily, Assess barriers to learning: daily, Assess readiness for medication education: daily Discharge/Continuing Care - Education Needs Education Needs: Patient Medication, Patient Diagnosis/Disease Process, Patient Coping Skills, Patient Community resources, Patient Activities of Daily Living, Patient Health Practices/Safety, Patient Personal Hygiene/Grooming, Patient Aftercare Safety Plan - Discharge Discharge Criteria: Tolerates medication w/o severe side effects, Free of Suicidal thoughts, Free of agitation, Normal sleep pattern, Ability to care for self, No longer exhibiting s/s of withdrawal, Reduction of target symptoms Discharge to:: Correction
--- NOTE | 2017-04-05 15:02 | RAD ---
HISTORY: OD COMPARISON: 03/24/2017 FINDINGS: LUNGS: No active pulmonary disease. PLEURA: No significant pleural effusion identified, no pneumothorax apparent. CARDIOVASCULAR: Normal. OSSEOUS STRUCTURES: No significant abnormalities. VISUALIZED UPPER ABDOMEN: Normal. OTHER FINDINGS: None. IMPRESSION: No active disease. No interval change perceived
[2017-04-05] MEDS: Divalproex 500 mg DR(BID formulation) PO SCH (17:31)
[2017-04-05] MEDS ORDERED: Magnesium Hydroxide Susp 30 ml UD PO PRN (18:18)
[2017-04-05] MEDS ORDERED: Alum-Mag Hydrox-Simethicone Susp (30 mL) PO PRN (18:18)
[2017-04-06 07:14] VITALS: RESP 17
[2017-04-06 08:01] LABS: CHOLESTEROL 151 mg/dL (130-200)
[2017-04-06 08:20] LABS: FREE T4 1.07 ng/dL (0.78-2.19)
[2017-04-06 08:34] LABS: THYROID STIMULATING HORMONE 0.8 mIU/mL (0.46-4.68)
[2017-04-06] MEDS: Divalproex 500 mg DR(BID formulation) PO SCH (08:46)
[2017-04-06] MEDS: Multivitamin Therapeutic Tab PO SCH (08:47)
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
--- NOTE | 2017-04-06 16:47 | PCM.BM ---
Treatment Plan Problems - Problems identified on initial assessmt self harm Date Initiated: 04/05/17 Time Initiated: 15:00 Assessment reference: NA Status: Active Priority: 1 suicidal ideation Date Initiated: 04/05/17 Time Initiated: 15:00 Assessment reference: NA Status: Active Priority: 2 ineffective coping Date Initiated: 04/05/17 Time Initiated: 15:00 Assessment reference: NA Status: Active Priority: 3 anxiety r/t substance abuse Date Initiated: 04/05/17 Time Initiated: 15:00 Assessment reference: NA Status: Active Priority: 4 knowledge deficit of alcohol use Date Initiated: 04/05/17 Time Initiated: 15:00 Assessment reference: NA Status: Active Priority: 5 medication non adherence Date Initiated: 04/05/17 Time Initiated: 15:00 Assessment reference: NA Status: Active Priority: 6 self esteem disturbance Date Initiated: 04/05/17 Time Initiated: 15:00 Assessment reference: NA Status: Active Priority: 7 Treatment assets and liabiliti Patient Assests: cooperative, ADL independent, physically healthy, good support system, negotiates basic needs, cognitively intact Patient Liabilities: live alone, poor support system, substance abuse - Diagnosis (1) Bipolar disorder Status: Acute Interventions: 04/06/17 16:46 Psychoeducation Psychopharmacology/adjustment of medications as needed/ monitoring possible side effects Monitor blood level of mood stabilizers Evaluate pt on daily basis Compliance with medications and follow up appointments Suicide and homicide risk assessment and prevention, coping strategies, safety plan Relapse prevention Reduction of symptoms Improve functional status Family intervention As outpatient: cognitive behavioral therapy (2) Antisocial personality disorder Status: Acute Interventions: 04/06/17 16:47 Psychoeducation Psychopharmacology/adjustment of medications as needed/ monitoring possible side effects Evaluate pt on daily basis Compliance with medications and follow up appointments Suicide and homicide risk assessment and prevention, coping strategies, safety plan Relapse prevention Family intervention As outpatient: Transference-focused psychotherapy/dialectical behavioral therapy /schema therapy Mindfulness skills (3) Polysubstance abuse Status: Acute Interventions: 04/06/17 16:47 Monitoring withdrawal symptoms Medical detoxification Pharmacotherapy for alcohol/benzos/opioid dependence Maintaining sobriety Relapse prevention Possible rehabilitation Motivational interviewing 12-step programs: AA meetings - Milieu Protocol Maintain good personal hygiene: every shift Encourage regular showers, every shift Remind patient to perform daily oral care, every shift Assist patient to perform ADL's Maintain personal safety: daily Educate patient to report safety concerns to staff, daily Monitor environment for contraband/sharps Medication safety: Monitor for expected outcome, potential side effects: daily, Assess barriers to learning: daily, Assess readiness for medication education: daily Milieu Narrative: milieu/structure/supportive therapy Paroxetine HCl [Paxil] will be resumed 10mg po hs for depression and anxiety Divalproex [Depakote (*BID*)] 500 mg PO BID will be resumed for mood stabilization atarax for insomnia hs 50mg Gabapentin [Neurontin] 300 mg PO TID will be continued Fioricet 1 tab PO bid PRN for headaches resume risperdal to 0.5 mg amhs for mood stabilization cogentin 0.5mg amhs for possible EPS ativan for alcohol withdrawals 2mg qid, with plan to taper it down wellbutrin 75mg daily for mdd ?add medical consult will be called dietitian consult will be called pt c/o losing weight because of cocaine will give PRN meds MVI po daily SW evaluation for homelessness Family Contact Family involvement: Famliy/SO not involved Discharge/Continuing Care - Education Needs Education Needs: Patient Medication, Patient Diagnosis/Disease Process, Patient Coping Skills, Patient Community resources, Patient Activities of Daily Living, Patient Health Practices/Safety, Patient Personal Hygiene/Grooming, Patient Aftercare Safety Plan - Discharge Discharge Criteria: Tolerates medication w/o severe side effects, Free of Suicidal thoughts, Free of agitation, Normal sleep pattern, Ability to care for self, No longer exhibiting s/s of withdrawal, Reduction of target symptoms Discharge to:: Snf - Treatment Team Participation Patient/Family/SO Statement: milieu/structure/supportive therapy Paroxetine HCl [Paxil] will be resumed 10mg po hs for depression and anxiety Divalproex [Depakote DR(*BID*)] 500 mg PO BID will be resumed for mood stabilization atarax for insomnia hs 50mg Gabapentin [Neurontin] 300 mg PO TID will be continued Fioricet 1 tab PO bid PRN for headaches resume risperdal to 0.5 mg amhs for mood stabilization cogentin 0.5mg amhs for possible EPS ativan for alcohol withdrawals 2mg qid, with plan to taper it down wellbutrin 75mg daily for mdd ?add medical consult will be called dietitian consult will be called pt c/o losing weight because of cocaine will give PRN meds MVI po daily SW evaluation for homelessness
--- NOTE | 2017-04-06 17:20 | CARD ---
APPROVED REPORT EKG Measurement Heart [id number] <Conclusion> Normal sinus rhythm Normal ECG
[2017-04-07 07:39] VITALS: BP 126/84; PULSE 76; TEMP 98
[2017-04-07] MEDS: Multivitamin Therapeutic Tab PO SCH (08:51)
[2017-04-07] MEDS: Divalproex 500 mg DR(BID formulation) PO SCH (08:53)
--- NOTE | 2017-04-07 20:23 | CON ---
DATE: HISTORY OF PRESENT ILLNESS: I was consulted in the psychiatric floor to take a look at Jens Hagen. I saw him in his room. First words out of his mouth was he wants Percocet because he has pain form a toothache. I told him that we will visit that at the end of my history and physical. He talked about trying to commute suicide, that he ran out of medication. He did not mention anything about heroin or cocaine. He brought up Percocet four or five times in the first five minutes of my discussion with him, all though he does not look to be in any pain. He is 41-year-old who stated he is very depressed, wants to hurt him elf. As I read the notes, it says he tried to overdose on heroin and cocaine. He did not tell me that history after I asked him numerous times. PAST MEDICAL HISTORY: Back pain, anxiety, bipolar, depression, apparently use, crack, cocaine and heroin and still looking for drugs. He has anxiety, depression, probable bipolar. FAMILY HISTORY: Unknown. SOCIAL HISTORY: He does do alcohol and does do crack, cocaine, heroin. Denies smoking. ALLERGIES: HE HAS ALLERGIES TO EGG, PENICILLIN, TRAZODONE AND CANNED FISH, ALTHOUGH I ASKED HIM SPECIFICALLY CAN HE TAKE PENICILLIN, HE SAID YES. MEDICATIONS: He is taking Cleocin, I guess, for the toothache, we will continue that. He got some Percocet which I will not continue, we will put him on tramadol. REVIEW OF SYSTEMS: No acute vision or hearing loss. He does have a complaint of tooth pain and infection and he has not seen anybody, do not know how he got the pain medication from. No sore throat. No neck pain. No chest pain. No shortness of breath. No abdominal pain. No extremity pain. He is depressed, he tells me he is depressed, he wants to kill himself. He is homeless, he did not tell me that. PHYSICAL EXAMINATION VITAL SIGNS: He has a 98.1 temperature, 83 pulse, 16 respiratory rate, 147/97 blood pressure. We will keep an eye on the blood pressure, 99% O2 sat on room air. HEENT: Head is atraumatic, normocephalic. Extraocular muscles are intact. Pupils are equal and reactive to light and accommodation. I do not see anything wrong with his throat. I cannot tell if the teeth are infected, may be mouth swelling to the left cheek. NECK: Supple. HEART: Regular rate. LUNGS: Decreased breath sounds, but clear. ABDOMEN: Soft and nontender. Positive bowel sounds. EXTREMITIES: No edema. NEUROLOGIC: GCS is 15. Speech is normal. Cranial nerves II through XII grossly intact. He move all 4 extremities. He can close his eyes tight. He can frown. He can stick out his tongue midline. SKIN: Warm and dry. No ulcers or rashes. Alert and oriented x3. No palpable lymphadenopathy and thyroid midline. LABORATORY DATA: He had lab work, nonreactive RPR. He is still positive for cocaine and a drug screen. Urine is clear He has a 140 sodium, potassium 3.6, BUN 18, and creatinine GFR is greater than 60. Sugar is 121, denied diabetes. Calcium is 9.1, total bilirubin is 0.18, AST is 28, ALT is 39, alkaline phosphatase 63, total protein 6.6, albumin is 4.1. Triglycerides Cholesterol 151. THS is 0.8. White count is 9.2, hemoglobin 13.2, hematocrit 37.8, platelets of 460. Chest x-ray was clear. EKG is normal sinus rhythm. MEDICATIONS: He is currently on Atarax, Ativan, Claritin, Cleocin I assume for the oral infection in his mouth, Cogentin, Depakote, Fioricet for headaches, folic acid, Geodon, Maalox, Milk of Magnesia, Neurontin, Nicoderm, Paxil, Risperdal, Sonata, Feratab, Tylenol, I gave tramadol, Vistaril, vitamin D1, Wellbutrin. I am hoping he improves with his tooth pain, his suicidal issues and his depression, I will follow. Check his labs tomorrow, encourage him to participate. He also wants Ensure one can 3 times a day because he tells me he lost weight and wants to put his weight back on. I will add Ensure to his list. Thank you for inviting. Duke Burns DO [facility] # [id number]
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
== END 2017-04-07 15:42 | disposition left against medical advice (07) | DRG 430 ==
LOC: ED 10:09 → ERH 12:36 → PSYC 13:18
PROVIDERS: ADMIT Psychiatry & Neurology Psychiatry; ATTEND Psychiatry & Neurology Psychiatry
DX: F31.9 Bipolar disorder, unspecified (principal); F11.20 Opioid dependence, uncomplicated; R45.851 Suicidal ideations; F14.10 Cocaine abuse, uncomplicated; F10.239 Alcohol dependence with withdrawal, unspecified; T40.1X1A Poisoning by heroin, accidental (unintentional), initial encounter; F60.2 Antisocial personality disorder; F19.10 Other psychoactive substance abuse, uncomplicated; G47.00 Insomnia, unspecified; F90.9 Attention-deficit hyperactivity disorder, unspecified type; F43.10 Post-traumatic stress disorder, unspecified; F17.210 Nicotine dependence, cigarettes, uncomplicated; K08.89 Other specified disorders of teeth and supporting structures; T51.0X1A Toxic effect of ethanol, accidental (unintentional), initial encounter; Z59.0 Homelessness; Z79.899 Other long term (current) drug therapy; M54.9 Dorsalgia, unspecified; Z88.8 Allergy status to other drugs, medicaments and biological substances; Z91.012 Allergy to eggs; Z88.0 Allergy status to penicillin; Z91.013 Allergy to seafood; R40.2412 Glasgow coma scale score 13-15, at arrival to emergency department